=== PATIENT | female | born 1960 | race Caucasian/White ===

== ENCOUNTER 2017-02-16 06:29 | Day surgery (SDC) | payer BC ==
--- NOTE | ~2017-02-16 | EGD ---
EGD REPORT [facility] [address] [address] NAME: NEREYDA FLORENTINO : 56 STATUS : REG [facility] PAT#: [id number] AGE: 56 ADM/REG DATE : 02/16/17 MR#: [id number] REPORT SERV DATE: 02/16/17 DICTATED BY: KY LYMAN DATE: 02/16/17 REPORT STATUS : Draft TRANSCRIBED BY: [facility] DATE: 02/16/17 Endoscopy Center Patient Name: Nereyda Florentino Date of : 1960 Attending MD: KY LYMAN MD Procedure Date No Time: 02/16/2017 Procedure: Colonoscopy Indications: Follow-up for history of adenomatous polyps in the colon, Personal history of malignant neoplasm of the colon, S/P transverse colectomy February 2016 for a 10 mm malignant colon polyp Referring MD: GLENYS MONTANO, JOHNATHAN GTZ III, MD, DEVIKA MERCER, WON ARVIZU, BEATRICE FLORENTINO MD Medicines: Propofol per Anesthesia Complications: No immediate complications. Estimated blood loss: None. Procedure: Pre-Anesthesia Assessment: - After reviewing the risks and benefits, the patient was deemed in satisfactory condition to undergo the procedure. - Prior to the procedure, a History and Physical was performed, and patient medications and allergies were reviewed. The patient's tolerance of previous anesthesia was also reviewed. The risks and benefits of the procedure and the sedation options and risks were discussed with the patient. All questions were answered, and informed consent was obtained. Prior Anticoagulants: The patient has taken no previous anticoagulant or antiplatelet agents. ASA Grade Assessment: II - A patient with mild systemic disease. After reviewing the risks and benefits, the patient was deemed in satisfactory condition to undergo the procedure. After I obtained informed consent, the scope was passed under direct vision. Throughout the procedure, the patient's blood pressure, pulse, and oxygen saturations were monitored continuously. The CF [id number] was introduced through the anus and advanced to the terminal ileum, with identification of the appendiceal orifice and IC valve. The colonoscopy was performed with ease. The ileocecal valve, appendiceal orifice and terminal ileum were photographed. The patient tolerated the procedure well. The quality of the bowel preparation was excellent. The bowel preparation used was SUPREP. Scope withdrawal time was greater than 7 minutes. Findings: EGD REPORT [address] [address] NAME: NEREYDA FLORENTINO : [birth year] STATUS : REG [facility] PAT#: [id number] AGE: 56 ADM/REG DATE : 02/16/17 MR#: [id number] REPORT SERV DATE: 02/16/17 DICTATED BY: KY LYMAN DATE: 02/16/17 REPORT STATUS : Draft TRANSCRIBED BY: [employer] DATE: 02/16/17 The perianal and digital rectal examinations were normal. Pertinent negatives include normal sphincter tone. The terminal ileum appeared normal. Retroflexion in the cecum provided alternate views of the ascending colon. Non-bleeding internal hemorrhoids were found during retroflexion and were small and Grade I (internal hemorrhoids that do not prolapse). A few small-mouthed diverticula were found in the sigmoid colon. There was evidence of a prior end-to-end colo-colonic anastomosis in the proximal descending colon about 40 cm proximal to the anus. This was patent. This was characterized by healthy appearing mucosa. This was traversed. The exam was otherwise without abnormality. Impression: - The examined portion of the ileum was normal. - Non-bleeding internal hemorrhoids. - Mild diverticulosis in the sigmoid colon. - Patent end-to-end colo-colonic anastomosis. - The examination was otherwise normal. Recommendation: - Discharge patient to home (ambulatory). - High fiber diet indefinitely. - Continue present medications. - Repeat colonoscopy in 1 year for surveillance. - Return to GI clinic PRN. - Patient has a contact number available for emergencies. The signs and symptoms of potential delayed complications were discussed with the patient. Return to normal activities tomorrow. Written discharge instructions were provided to the patient. Procedure Code(s): --- Professional --- 93798, Colonoscopy, flexible, proximal to splenic flexure; diagnostic, with or without collection of specimen(s) by brushing or washing, with or without colon decompression (separate procedure) Diagnosis Code(s): --- Professional --- K64.0, First degree hemorrhoids K57.30, Diverticulosis of large intestine without perforation or abscess without bleeding Z98.0, Intestinal bypass and anastomosis status Z86.010, Personal history of colonic polyps Z85.038, Personal history of other malignant neoplasm of large intestine EGD REPORT [place] [address] [place]. [address] NAME: NEREYDA FLORENTINO : 56 STATUS : REG [facility] PAT#: [id number] AGE: 56 ADM/REG DATE : 02/16/17 MR#: [id number] REPORT SERV DATE: 02/16/17 DICTATED BY: KY LYMAN. DATE: 02/16/17 REPORT STATUS : Draft TRANSCRIBED BY: [employer] DATE: 02/16/17 CPT copyright 2013 [employer]. All rights reserved. The codes documented in this report are preliminary and upon manager clinical pharmacy review may be revised to meet current compliance requirements. KY LYMAN MD 02/16/2017 8:11 AM This report has been signed electronically. Number of Addenda: 0 Note Initiated On: 02/16/2017 7:40 AM Scope Withdrawal Time 0 hours 7 minutes 43 seconds [address] [place] [address]
[~2017-02-16 06:29] MED LIST: B121000P IM; LAM250 PO; MOTRIN IB200 MG PO; MULTIVIT/MIN PO; NEXIUM20 M1 PO; OS500+D PO; PERCOCET1 TA2 PO; VIT B12 INJ IM
== END 2017-02-16 23:59 | disposition home or self-care (01) ==
LOC: DMU 06:29
PROVIDERS: Internal Medicine Gastroenterology
PROC: 0DJD8ZZ Inspection of Lower Intestinal Tract, Via Natural or Artificial Opening Endoscopic (ICD-10-PCS; principal; 2017-02-16 08:00)
DX: K64.0 First degree hemorrhoids (principal); K57.30 Diverticulosis of large intestine without perforation or abscess without bleeding; M19.90 Unspecified osteoarthritis, unspecified site; K21.9 Gastro-esophageal reflux disease without esophagitis; Z98.0 Intestinal bypass and anastomosis status; Z86.010 Personal history of colon polyps; Z85.038 Personal history of other malignant neoplasm of large intestine; Z88.2 Allergy status to sulfonamides; Z88.8 Allergy status to other drugs, medicaments and biological substances; Z98.890 Other specified postprocedural states
CPT/HCPCS: J2405